=== PATIENT | male | born 2000 | race Caucasian/White ===

== ENCOUNTER 2024-04-05 01:00 | Emergency (ER) | payer BC ==
[~2024-04-05] VITALS: Ht 175.3 cm; Wt 83.9 kg
[2024-04-05 01:08] VITALS: BP_SYST 128; PULSE 77; RESP 18; TEMP 97.4; O2SAT 94
[2024-04-05 01:21] VITALS: TEMP 98.3
[2024-04-05] MEDS ORDERED: IPRATROPIUM/ALBUTEROL SULFATE 3 ML AMPUL.NEB (DUONEB) ONE (01:29)
[2024-04-05] MEDS: IPRATROPIUM/ALBUTEROL SULFATE 3 ML AMPUL.NEB (DUONEB) INH ONE (01:35)
[2024-04-05] MEDS: predniSONE 20 MG TABLET PO ONE (01:38)
[2024-04-05] MEDS ORDERED: PRED20TA PO (01:55)
[2024-04-05 03:11] VITALS: BP_SYST 129; PULSE 72; RESP 19; O2SAT 94
== END 2024-04-05 02:00 | disposition home or self-care (01) ==
LOC: SED 01:00
DX: J45.901 Unspecified asthma with (acute) exacerbation (principal); Z79.899 Other long term (current) drug therapy
CPT/HCPCS: 99283; 94640; J7512